=== PATIENT | female | born 1970 | race Hispanic/Latino ===

== ENCOUNTER 2017-12-31 03:49 | Emergency (ER) | payer BC ==
[2017-12-31 04:14] LABS: Bilirubin Negative (Negative); Blood, Urine Negative (Negative); Clarity CLEAR (Clear); Glucose, Urine (Dipstick) Negative (Negative); Leukocyte Negative (Negative); Nitrite Negative (Negative); Protein, Urine (Dipstick) Negative (Neg-Trace); Specific Gravity, Urine 1.003 (1.002-1.036); Urobilinogen 0.2 mg/dL (0.2-1.0)
[2017-12-31 04:16] LABS: Pregnancy Test - Urine (BHCG) Negative (Negative); Pregu Control Background? CLEAR/WHITE (CLR/WHITE); Pregu Control Bar Appear? YES (CONTROL BAR); Specific Gravity 1.003 (1.002-1.036)
[2017-12-31] MEDS ORDERED: diphenhydrAMINE 12.5 MG/5 ML UDCUP ONE (04:28)
[2017-12-31] MEDS ORDERED: Promethazine HCl 12.5 MG SUPP ONE (04:28)
[2017-12-31] MEDS ORDERED: Promethazine HCl 25 MG/ML VIAL ONE (04:30)
[2017-12-31] MEDS ORDERED: diphenhydrAMINE 50 MG/ML VIAL ONE (04:30)
== END 2017-12-31 05:33 | disposition home or self-care (01) ==
LOC: ERS 03:49
DX: J06.9 Acute upper respiratory infection, unspecified (principal)
CPT/HCPCS: 81003; 81025; 93005; 96361; 96374; 96375; J1200; J2550

== ENCOUNTER 2020-10-04 23:58 | Emergency (ER) | payer BC ==
[2020-10-05] MEDS ORDERED: hydrOXYzine 25 MG TAB ONE (01:14)
== END 2020-10-05 01:22 | disposition home or self-care (01) ==
LOC: ERS 23:58
DX: F41.9 Anxiety disorder, unspecified (principal); I10 Essential (primary) hypertension; Z79.899 Other long term (current) drug therapy
CPT/HCPCS: 99283